=== PATIENT | male | born 1950 | race Caucasian/White ===

== ENCOUNTER 2018-02-16 09:52 | Outpatient (REF) | payer BC, SELFPAY ==
[2018-02-16 21:59] LABS: HGB 15.7 g/dL (13.5-17.5); Mean Corp. HGB Concentration 31.6 g/dL (32.0-36.0); Mean Corpuscular Hemoglobin 24.1 pg (27.0-33.0); Mean Corpuscular Volume 76.3 fL (80-95); Mean Platelet Volume 11.3 fL (8.0-11.0); Platelet Count 137 x1000/uL (130-400); RBC 6.51 m/cumm (4.50-6.00); RBC Distribution Width 18.7 % (11.8-14.1); White Blood Cell Count 11.07 k/cumm (4.4-10.8)
[2018-02-16 22:05] LABS: HCT 49.7 % (40.0-50.0)
[2018-02-16 22:40] LABS: Hemoglobin A1C 7.3 % (4.5-6.2)
== END 2018-02-16 10:12 ==
LOC: NCHCN 09:52
PROVIDERS: PCP Internal Medicine; Visit Provider Internal Medicine
DX: I10 Essential (primary) hypertension (principal); D75.1 Secondary polycythemia; E11.9 Type 2 diabetes mellitus without complications
CPT/HCPCS: 85027; 83036

== ENCOUNTER 2019-02-20 10:02 | Outpatient (REF) | payer BC, SELFPAY ==
[2019-02-20 21:37] LABS: Anion Gap 9.3 mmol/L (3-11); BUN 11 mg/dL (7-18); CO2 28.7 mmol/L (21.0-32.0); CREATININE 0.87 mg/dL (0.70-1.30); Calcium 8.7 mg/dL (8.5-10.1); Calculated LDL 83 mg/dL; Chloride 101 mmol/L (98-107); Cholesterol 138 mg/dL (50-200); Glucose 160 mg/dL (70-100); HDL Cholesterol 38 mg/dL (40-60); Potassium 3.9 mmol/L (3.5-5.1); Sodium 139 mmol/L (136-145); Triglyceride 89 mg/dL (30-150)
[2019-02-20 21:55] LABS: Hemoglobin A1C 8.1 % (4.5-6.2)
[2019-02-20 22:01] LABS: COMMENT (LAB VIEW ONLY) 36.53 mg/dL
== END 2019-02-20 10:22 ==
LOC: NCHCN 10:02
PROVIDERS: PCP Internal Medicine; Visit Provider Internal Medicine
DX: E11.9 Type 2 diabetes mellitus without complications (principal); I10 Essential (primary) hypertension; Z13.6 Encounter for screening for cardiovascular disorders
CPT/HCPCS: 80048; 80061; 82043; 82570; 83036

== ENCOUNTER 2019-02-27 11:21 | Outpatient (REF) | payer BC, SELFPAY ==
[2019-02-27 21:57] LABS: HCT 53.3 % (40.0-50.0); HGB 16.8 g/dL (13.5-17.5); Mean Corp. HGB Concentration 31.5 g/dL (32.0-36.0); Mean Corpuscular Hemoglobin 24.2 pg (27.0-33.0); Mean Corpuscular Volume 76.7 fL (80-95); Mean Platelet Volume 11.4 fL (8.0-11.0); RBC 6.95 m/cumm (4.50-6.00); RBC Distribution Width 17.6 % (11.8-14.1); White Blood Cell Count 8.74 k/cumm (4.4-10.8)
[2019-02-27 22:24] LABS: Ferritin 18 ng/mL (8-388)
[2019-02-27 23:22] LABS: Platelet Count 97 x1000/uL (130-400)
== END 2019-02-27 11:41 ==
LOC: NCHCN 11:21
PROVIDERS: PCP Internal Medicine; Visit Provider Internal Medicine
DX: D75.1 Secondary polycythemia (principal)
CPT/HCPCS: 85027; 82728

== ENCOUNTER 2019-04-17 14:38 | Outpatient (REF) | payer BC, SELFPAY ==
[2019-04-17 23:12] LABS: Hemoglobin A1C 7.8 % (3.8-5.6)
== END 2019-04-17 14:58 ==
LOC: NCHCN 14:38
PROVIDERS: PCP Internal Medicine; Visit Provider Internal Medicine
DX: D75.1 Secondary polycythemia (principal); E11.9 Type 2 diabetes mellitus without complications
CPT/HCPCS: 83036